=== PATIENT | female | born 1965 | race Caucasian/White ===

== ENCOUNTER 2017-10-13 08:58 | Emergency (ER) | payer SELFPAY ==
[~2017-10-13] VITALS: Ht 162.6 cm; Wt 94.8 kg
[2017-10-13 08:58] VITALS: BP_SYST 175
[2017-10-13 09:50] VITALS: BP_SYST 168
== END 2017-10-13 09:50 | disposition home or self-care (01) ==
LOC: SED 08:58
DX: J06.9 Acute upper respiratory infection, unspecified (principal); I10 Essential (primary) hypertension
CPT/HCPCS: 36415; 86403; 87081; 99285